=== PATIENT | female | born 1960 | race Caucasian/White ===

== ENCOUNTER 2018-05-16 09:53 | Outpatient (CLI) | payer OTHER ==
--- NOTE | 2018-05-16 11:31 | RAD ---
FRONTAL VIEW SPINAL SERIES 3 VIEWS SCOLIOSIS STUDY: INDICATION: Lumbar radiculopathy. FINDINGS: There is mild left convexity curvature centered at the apex T11-12 level measuring 10 [id number]. Ther e is dextroscoliosis of the lumbar spine centered at the L2-3 region which measured approximately 24 degrees. No vertebral anomalies are seen. There is mild degenerative change. Calcification of the right lateral neck may relate to vascular disease. IMPRESSION: Mild levoscoliosis of the low thoracic spine and dextroscoliosis involving the lumbar spine. POS: JAYME
--- NOTE | 2018-05-16 12:22 | MRI ---
LUMBAR SPINE MRI NONCONTRAST: INDICATION: Low back pain, left lower extremity radiculopathy. FINDINGS: Conus medullaris normal in morphology terminating at the L1 level. There is marrow signal alteration of the inferior L2 and superior L3 vertebral segments compatible wi th degenerative signal alteration. Multilevel disk space narrowing and end plate degenerative change is present with multilevel Schmorl's ode formation and marginal osteophytosis. No acute compression fracture. There is multilevel bilateral mild to moderate degenerative facet hypertrophy. L5-S1: There is a disk-osteophyte complex which effaces the ventral thecal sac with mild narrowing o f the central canal. There is bilateral facet hypertrophy and uncinate process hypertrophy with resu ltant mild right foraminal narrowing. No significant foraminal stenosis. L4-5: Disk-osteophyte complex present with mild narrowing of the central canal. There is mild narro wing of each neural foramen. L3-4: Broad-based disk-osteophyte results in moderate to severe central canal stenosis. There is mi ld to moderate left foraminal narrowing. There is minimal narrowing of the right neural foramen. L2-3: Broad-based disk-osteophyte results in moderate central canal narrowing. There is potential f or impingement of the traversing left L3 nerve root. Moderate left neural foraminal stenosis present . No significant right foraminal compromise. L1-2: Right asymmetric disk-osteophyte results in mild narrowing of the ventral aspect of the centra l canal. No high-grade foraminal stenosis. Intrinsic T1 hyperintensity of T12 vertebral body indicates an intraosseous hemangioma. IMPRESSION: Multilevel degenerative change of the lumbar spine, most pronounced at the L3-4 level with moderate t o severe central canal stenosis. POS: JAYME
== END 2018-05-16 09:54 | disposition home or self-care (01) ==
LOC: TBSIIMAG 09:53
PROVIDERS: ATTEND Neurological Surgery
DX: M47.26 Other spondylosis with radiculopathy, lumbar region (principal); M48.061 Spinal stenosis, lumbar region without neurogenic claudication; M41.9 Scoliosis, unspecified
CPT/HCPCS: 72081; 72148